=== PATIENT | male | born 1990 | race Caucasian/White ===

== ENCOUNTER → 2024-01-10 16:51 | Outpatient (REF) | payer BC, SELFPAY | LOC: RAD 16:51 | PROVIDERS: ATTENDING PHYSICIAN Orthopaedic Surgery; FAMILY PHYSICIAN Family Medicine Sports Medicine | DX: M71.21 Synovial cyst of popliteal space [Baker], right knee (principal); M25.561 Pain in right knee; M23.91 Unspecified internal derangement of right knee | CPT/HCPCS: 70030 ==